=== PATIENT | male | born 1990 | race Caucasian/White ===

== ENCOUNTER 2017-06-15 20:52 | Emergency (ER) | payer OTHER ==
[~2017-06-15] VITALS: Ht 167.6 cm; Wt 72.6 kg
[~2017-06-15 20:52] MED LIST: AMOXICILLIN500 M2 PO; AMOXICILLIN500 MG PO; ATIVAN0.5 MG PO; AUGMENTIN 875 M1 TAB PO; CIPRO500 MG PO; CIPRODEX 0.3%-7.5 ML OT; DARVOCET N 1001 TAB PO; DOXYCYCLINE MO100 MG PO; HYDROCODONE BIT1 T11 PO; HYDROCODONE BIT1 T20 PO; KEFLEX500 MG PO; KENALOG0.1% TP; MOTRIN800 MG PO; Motrin,Rufen800 MG PO; NORCO 5-325 TA1 EACH PO; PENICILLIN VK500 MG PO; PENICILLIN-VK500 M1 PO; PREDNISONE10 MG PO; Peridex 473 ML473 ML PO; TRAMADOL HCL50 MG PO; VICODIN 5-3001 EACH PO; VOSOL HC OT; VYVANSE30 MG PO; ZITHROMAX TRI-500 MG PO; ZOFRAN ODT4 MG SL
[2017-06-15] MEDS ORDERED: PREDNISONE10 MG PO (21:18)
== END 2017-06-15 21:20 | disposition home or self-care (01) ==
LOC: ED 20:52
DX: L23.7 Allergic contact dermatitis due to plants, except food (principal); F17.200 Nicotine dependence, unspecified, uncomplicated; Z79.899 Other long term (current) drug therapy

== ENCOUNTER 2018-08-19 10:49 | Emergency (ER) | payer OTHER ==
[~2018-08-19] VITALS: Ht 167.6 cm; Wt 80.7 kg
[2018-08-19 11:09] LABS: BASO % 0.5 % (0.0-1.0); EOS # 0.2 10*3/uL (0.0-0.4); EOS % 2.5 % (1.0-4.0); HEMATOCRIT 43.5 % (42.0-52.0); HEMOGLOBIN 14.6 g/dl (14.0-18.0); LYMPH # 2.2 10*3/uL (1.3-4.4); LYMPH % 28.7 % (27.0-41.0); MEAN CELL VOLUME 86.3 fl (80.0-94.0); MEAN CORPUSCULAR HGB CONC 33.6 g/dl (33.0-37.0); MEAN PLATELET VOLUME 10.2 fl (9.6-12.3); MONO # 0.6 10*3/uL (0.1-1.0); MONO % 8.1 % (3.0-9.0); NEUT # 4.6 10*3/uL (2.3-7.9); NEUT % 59.9 % (47.0-73.0); PLATELET COUNT AUTOMATED 360 10*3/uL (130-400); RED BLOOD COUNT 5.04 10*6/uL (4.50-5.90); RED CELL DISTRI WIDTH 13.7 % (0-14.5); WHITE BLOOD COUNT 7.7 10*3/uL (4.8-10.8)
[2018-08-19 11:24] LABS: ALBUMIN 4.1 gm/dl (3.1-4.5); ALKALINE PHOSPHATASE 67 U/L (45-117); BUN 6 mg/dl (7-24); CHLORIDE 107 mmol/L (98-107); CREATININE 0.91 mg/dL (0.70-1.30); POTASSIUM 4.3 mmol/L (3.5-5.1); SGOT/AST 21 IU/L (3-35); SGPT/ALT 47 U/L (12-78); SODIUM 139 mmol/L (136-145); TOTAL PROTEIN 8.4 gm/dL (6.4-8.2)
[2018-08-19 11:27] LABS: BILIRUBIN NEGATIVE (NEGATIVE); BLOOD NEGATIVE (NEGATIVE); CLARITY SL CLOUDY (CLEAR); COLOR YELLOW (YELLOW); GLUCOSE NEGATIVE (NEGATIVE); KETONE NEGATIVE (NEGATIVE); LEUKO ESTERASE NEGATIVE (NEGATIVE); NITRITE NEGATIVE (NEGATIVE); UROBILINOGEN 0.2 E.U./dl (0.2-1.0)
[2018-08-19 11:35] LABS: BACTERIA 1+; EPITHELIAL CELLS 0-2; RBC 0-2 rbc/hpf (0-2); WBC 0-2 wbc/hpf (0-5)
[2018-08-19] MEDS ORDERED: ZITHROMAX250 MG PO (12:34)
== END 2018-08-19 12:47 | disposition home or self-care (01) ==
LOC: ED 10:49
PROVIDERS: Physician Assistant
DX: J06.9 Acute upper respiratory infection, unspecified (principal); R10.9 Unspecified abdominal pain; F17.200 Nicotine dependence, unspecified, uncomplicated; Z79.899 Other long term (current) drug therapy; Z79.2 Long term (current) use of antibiotics

== ENCOUNTER 2018-10-02 18:47 | Emergency (ER) | payer OTHER ==
[~2018-10-02] VITALS: Ht 167.6 cm; Wt 81.6 kg
[~2018-10-02 18:47] MED LIST changes: +ZITHROMAX250 MG PO
[2018-10-02] MEDS ORDERED: CLONIDINE HCL0.2 MG PO (18:49)
== END 2018-10-02 20:22 | disposition home or self-care (01) ==
LOC: ED 18:47
DX: A08.4 Viral intestinal infection, unspecified (principal); Z79.2 Long term (current) use of antibiotics; Z79.899 Other long term (current) drug therapy

== ENCOUNTER 2019-07-13 19:46 | Emergency (ER) | payer OTHER ==
[~2019-07-13] VITALS: Ht 170.1 cm; Wt 86.2 kg
[~2019-07-13 19:46] MED LIST changes: +CLONIDINE HCL0.2 MG PO
[2019-07-13] MEDS ORDERED: ZOFRAN4 MG PO (20:18)
[2019-07-13 20:43] LABS: BASO % 0.4 % (0.0-1.0); EOS # 0.3 10*3/uL (0.0-0.4); EOS % 2.8 % (1.0-4.0); HEMOGLOBIN 13.8 g/dl (14.0-18.0); LYMPH # 3.3 10*3/uL (1.3-4.4); LYMPH % 36.6 % (27.0-41.0); MEAN CELL VOLUME 88.2 fl (80.0-94.0); MEAN CORPUSCULAR HGB 29.7 pg (27.0-31.0); MEAN CORPUSCULAR HGB CONC 33.7 g/dl (33.0-37.0); MEAN PLATELET VOLUME 9.9 fl (9.6-12.3); MONO # 0.7 10*3/uL (0.1-1.0); MONO % 7.7 % (3.0-9.0); NEUT # 4.7 10*3/uL (2.3-7.9); NEUT % 51.9 % (47.0-73.0); PLATELET COUNT AUTOMATED 309 10*3/uL (130-400); RED BLOOD COUNT 4.65 10*6/uL (4.50-5.90); RED CELL DISTRI WIDTH 13.4 % (0-14.5)
[2019-07-13 20:58] LABS: ALBUMIN 3.7 gm/dl (3.1-4.5); ALKALINE PHOSPHATASE 73 U/L (45-117); BUN 7 mg/dl (7-24); CHLORIDE 105 mmol/L (98-107); CREATININE 0.71 mg/dL (0.70-1.30); LIPASE 98 U/L (73-393); POTASSIUM 3.9 mmol/L (3.5-5.1); SGOT/AST 37 IU/L (3-35); SGPT/ALT 85 U/L (12-78); SODIUM 139 mmol/L (136-145)
== END 2019-07-13 21:10 | disposition home or self-care (01) ==
LOC: ED 19:46
PROVIDERS: Nurse Practitioner Family
DX: R11.2 Nausea with vomiting, unspecified (principal); R10.13 Epigastric pain; Z79.2 Long term (current) use of antibiotics; Z79.899 Other long term (current) drug therapy

== ENCOUNTER 2019-12-18 21:26 | Emergency (ER) | payer OTHER ==
[~2019-12-18] VITALS: Ht 170.1 cm; Wt 88.5 kg
[~2019-12-18 21:26] MED LIST changes: +ZOFRAN4 MG PO
[2019-12-18] MEDS ORDERED: ZOFRAN4 MG PO (22:30)
[2019-12-18 22:45] LABS: BASO # 0.1 10*3/uL (0.0-0.1); BASO % 0.6 % (0.0-1.0); EOS # 0.3 10*3/uL (0.0-0.4); EOS % 3.9 % (1.0-4.0); HEMATOCRIT 42.1 % (42.0-52.0); HEMOGLOBIN 13.9 g/dl (14.0-18.0); LYMPH % 34.5 % (27.0-41.0); MEAN CELL VOLUME 88.6 fl (80.0-94.0); MEAN CORPUSCULAR HGB 29.3 pg (27.0-31.0); MEAN PLATELET VOLUME 10.3 fl (9.6-12.3); MONO # 0.7 10*3/uL (0.1-1.0); MONO % 8.4 % (3.0-9.0); NEUT # 4.5 10*3/uL (2.3-7.9); NEUT % 52.4 % (47.0-73.0); PLATELET COUNT AUTOMATED 346 10*3/uL (130-400); RED BLOOD COUNT 4.75 10*6/uL (4.50-5.90); RED CELL DISTRI WIDTH 13.5 % (0-14.5); WHITE BLOOD COUNT 8.5 10*3/uL (4.8-10.8)
[2019-12-18 22:59] LABS: ALBUMIN 3.9 gm/dl (3.1-4.5); ALKALINE PHOSPHATASE 81 U/L (45-117); BUN 12 mg/dl (7-24); CHLORIDE 106 mmol/L (98-107); CREATININE 0.83 mg/dL (0.70-1.30); LIPASE 101 U/L (73-393); POTASSIUM 4.1 mmol/L (3.5-5.1); SGOT/AST 32 IU/L (3-35); SGPT/ALT 58 U/L (12-78); SODIUM 139 mmol/L (136-145); TOTAL PROTEIN 7.6 gm/dL (6.4-8.2)
== END 2019-12-19 01:09 | disposition home or self-care (01) ==
LOC: ED 21:26
PROVIDERS: Physician Assistant
DX: A08.4 Viral intestinal infection, unspecified (principal); R11.2 Nausea with vomiting, unspecified; Z79.2 Long term (current) use of antibiotics; Z79.899 Other long term (current) drug therapy

== ENCOUNTER → 2020-10-01 | Outpatient (CLI) | payer OTHER | END | disposition home or self-care (01) | LOC: COVID19 16:01 | PROVIDERS: ATTEND Hospitalist | DX: Z20.828 Contact with and (suspected) exposure to other viral communicable diseases (principal) ==

== ENCOUNTER → 2020-11-22 | Outpatient (CLI) | payer OTHER ==
[2020-11-22 11:49] LABS: BASO % 0.4 % (0.0-1.0); EOS # 0.1 10*3/uL (0.0-0.4); EOS % 1.3 % (1.0-4.0); HEMATOCRIT 43.1 % (42.0-52.0); LYMPH # 2.7 10*3/uL (1.3-4.4); MEAN CELL VOLUME 87.1 fl (80.0-94.0); MEAN CORPUSCULAR HGB 29.1 pg (27.0-31.0); MEAN CORPUSCULAR HGB CONC 33.4 g/dl (33.0-37.0); MEAN PLATELET VOLUME 9.8 fl (9.6-12.3); MONO # 0.6 10*3/uL (0.1-1.0); MONO % 8.5 % (3.0-9.0); NEUT # 3.5 10*3/uL (2.3-7.9); NEUT % 50.5 % (47.0-73.0); PLATELET COUNT AUTOMATED 384 10*3/uL (130-400); RED BLOOD COUNT 4.95 10*6/uL (4.50-5.90); RED CELL DISTRI WIDTH 13.1 % (0-14.5); WHITE BLOOD COUNT 6.9 10*3/uL (4.8-10.8)
[2020-11-22 12:18] LABS: ALBUMIN 4.1 gm/dl (3.1-4.5); ALKALINE PHOSPHATASE 74 U/L (45-117); BUN 6 mg/dl (7-24); CHLORIDE 104 mmol/L (98-107); POTASSIUM 3.5 mmol/L (3.5-5.1); SGOT/AST 36 IU/L (3-35); SGPT/ALT 71 U/L (12-78); SODIUM 139 mmol/L (136-145); TOTAL PROTEIN 7.6 gm/dL (6.4-8.2)
[2020-11-23 04:06] LABS: HEP B CORE AB, IGM Negative (Negative); HEPATITIS B SURFACE AG Negative (Negative); HEPATITIS C VIRUS ANTIBODY <0.1 s/co (0.0-0.9)
== END | disposition home or self-care (01) ==
LOC: LAB 11:29
PROVIDERS: Family Medicine; ATTEND Nurse Practitioner Family
DX: F11.20 Opioid dependence, uncomplicated (principal)

== ENCOUNTER 2021-06-16 14:45 | Emergency (ER) | payer OTHER ==
[~2021-06-16] VITALS: Wt 81.6 kg
[2021-06-16] MEDS ORDERED: ALA-CORT28.4 GM T (16:14)
== END 2021-06-16 16:21 | disposition home or self-care (01) ==
LOC: ED 14:45
DX: L29.9 Pruritus, unspecified (principal); Z79.899 Other long term (current) drug therapy

== ENCOUNTER 2022-05-06 15:55 | Emergency (ER) | payer OTHER ==
[~2022-05-06] VITALS: Ht 177.8 cm; Wt 83.9 kg
[~2022-05-06 15:55] MED LIST changes: +ALA-CORT28.4 GM T
== END 2022-05-06 18:30 | disposition home or self-care (01) ==
LOC: ED 15:55
DX: S90.31XA Contusion of right foot, initial encounter (principal); F15.93 Other stimulant use, unspecified with withdrawal; F17.200 Nicotine dependence, unspecified, uncomplicated; W21.09XA Struck by other hit or thrown ball, initial encounter; Y93.89 Activity, other specified; Y92.89 Other specified places as the place of occurrence of the external cause; Y99.8 Other external cause status

== ENCOUNTER 2022-07-01 11:10 | Emergency (ER) | payer OTHER ==
[~2022-07-01] VITALS: Ht 172.7 cm; Wt 77.1 kg
== END 2022-07-01 12:30 | disposition home or self-care (01) ==
LOC: ED 11:10
DX: F11.20 Opioid dependence, uncomplicated (principal); Z98.890 Other specified postprocedural states

== ENCOUNTER 2022-12-12 11:47 | Inpatient (IN) | payer OTHER ==
[~2022-12-12] VITALS: Ht 170.1 cm; Wt 81.8 kg
[2022-12-12 12:06] VITALS: BP 143/91
[2022-12-12 13:31] LABS: BILIRUBIN Negative (Negative); BLOOD Negative (Negative); CLARITY Clear (Clear); COLOR Yellow (Yellow); GLUCOSE Negative (Negative); KETONE Negative (Negative); LEUKO ESTERASE Negative (Negative); NITRITE Negative (Negative); SPECIFIC GRAVITY 1.015 (1.001-1.030); UROBILINOGEN 0.2 E.U./dl (0.0-1.0)
[2022-12-12 13:37] LABS: URINE AMPHETAMINES Positive (1000ng/ml); URINE BARBITURATES Negative (200ng/ml); URINE BENZODIAZEPINES Positive (200ng/ml); URINE CANNABINOIDS (THC) Positive (50ng/ml); URINE COCAINE Negative (300ng/ml); URINE METHADONE Negative (300ng/ml); URINE OPIATES Negative (300ng/ml); URINE PHENCYCLIDINE Negative (25ng/ml)
[2022-12-12 13:43] LABS: BACTERIA TRACE; EPITHELIAL CELLS 0-2
[2022-12-12 14:17] LABS: BASO % 0.6 % (0.0-1.0); EOS # 0.1 10*3/uL (0.0-0.4); EOS % 1.5 % (1.0-4.0); HEMATOCRIT 46.7 % (42.0-52.0); LYMPH # 2.3 10*3/uL (1.3-4.4); LYMPH % 34.9 % (27.0-41.0); MEAN CELL VOLUME 86.3 fl (80.0-94.0); MEAN CORPUSCULAR HGB 28.5 pg (27.0-31.0); MEAN PLATELET VOLUME 9.8 fl (9.6-12.3); MONO # 0.5 10*3/uL (0.1-1.0); MONO % 7.9 % (3.0-9.0); NEUT # 3.5 10*3/uL (2.3-7.9); NEUT % 54.8 % (47.0-73.0); PLATELET COUNT AUTOMATED 381 10*3/uL (130-400); RED BLOOD COUNT 5.41 10*6/uL (4.50-5.90); RED CELL DISTRI WIDTH 13.2 % (0-14.5); WHITE BLOOD COUNT 6.5 10*3/uL (4.8-10.8)
[2022-12-12 14:55] LABS: ALKALINE PHOSPHATASE 58 U/L (46-116); BUN 6 mg/dl (9-23); CHLORIDE 104 mmol/L (98-107); CPK 90 U/L (34-171); POTASSIUM 3.8 mmol/L (3.4-5.1); SGPT/ALT 32 U/L (10-49); TOTAL PROTEIN 7.5 gm/dL (6.0-8.0)
[2022-12-12 14:58] LABS: ETHYL ALCOHOL < 3.0 mg/dl (<3)
[2022-12-12 16:04] VITALS: BP 132/81
[2022-12-12 20:00] VITALS: BP 125/87
[2022-12-13] VITALS: BP 123/74
[2022-12-13 06:14] LABS: BASO % 0.5 % (0.0-1.0); EOS # 0.2 10*3/uL (0.0-0.4); EOS % 2.9 % (1.0-4.0); HEMATOCRIT 42.5 % (42.0-52.0); LYMPH # 3.9 10*3/uL (1.3-4.4); LYMPH % 47.9 % (27.0-41.0); MEAN CELL VOLUME 87.1 fl (80.0-94.0); MEAN CORPUSCULAR HGB 28.7 pg (27.0-31.0); MEAN CORPUSCULAR HGB CONC 32.9 g/dl (33.0-37.0); MEAN PLATELET VOLUME 10.4 fl (9.6-12.3); MONO # 0.6 10*3/uL (0.1-1.0); MONO % 7.2 % (3.0-9.0); NEUT # 3.3 10*3/uL (2.3-7.9); NEUT % 41.3 % (47.0-73.0); PLATELET COUNT AUTOMATED 327 10*3/uL (130-400); RED BLOOD COUNT 4.88 10*6/uL (4.50-5.90); RED CELL DISTRI WIDTH 13.4 % (0-14.5)
[2022-12-13 06:23] LABS: ALKALINE PHOSPHATASE 52 U/L (46-116); BUN 7 mg/dl (9-23); CHLORIDE 101 mmol/L (98-107); POTASSIUM 3.5 mmol/L (3.4-5.1); SGPT/ALT 29 U/L (10-49); TOTAL PROTEIN 6.1 gm/dL (6.0-8.0)
[2022-12-13 08:00] VITALS: BP 128/80
== END 2022-12-13 15:23 | disposition left against medical advice (07) | DRG 770 ==
LOC: ED 11:47 → EDHOLD 14:08 → 4E 14:08 → EDHOLD 14:16 → 4E 16:27
PROVIDERS: Family Medicine; Physician Assistant; ADMIT Family Medicine; ATTEND Family Medicine
DX: F11.23 Opioid dependence with withdrawal (principal); F11.20 Opioid dependence, uncomplicated; F41.9 Anxiety disorder, unspecified; F13.10 Sedative, hypnotic or anxiolytic abuse, uncomplicated; F17.210 Nicotine dependence, cigarettes, uncomplicated; F15.13 Other stimulant abuse with withdrawal; Z53.29 Procedure and treatment not carried out because of patient's decision for other reasons; F32.A Depression, unspecified